=== PATIENT | female | born 1945 | race Caucasian/White ===

== ENCOUNTER → 2025-06-15 12:23 | Outpatient (REF) | payer MEDICARE, SELFPAY ==
--- NOTE | 2025-06-15 12:23 | S_PTH ---
PATIENT: Peri Powers LOC: [facility] U#:[id number] AGE/SX: 80/F ROOM: RE06/15/[address]: Merry Prince PA-C : 1945 BED: DIS: SPEC #: [id number] RECD: 06/15/25 13:10 STATUS: RUBÉN REShweta #: [id number] EZEQUIEL: 06/15/25 12:[address]: Merry Prince DEPT: [facility] Surgical RECD BY: Phyllis Serra ENTERED: 06/15/25 13:10 SP TYPE: Surgical OTHR DR: Rachel Danielson APRN Tissues: A - Mass Procedures: Hematoxylin and Eosin Stain Gross and Microscopic Level 3
== END ==
LOC: ANHLAB 12:23
PROVIDERS: PCP Nurse Practitioner Family; Visit Provider Physician Assistant Surgical
DX: L72.11 Pilar cyst (principal)
CPT/HCPCS: 88304